=== PATIENT | female | born 1970 | race Caucasian/White ===

== ENCOUNTER → 2018-03-02 | Outpatient (CLI) | payer OTHER | LOC: MRI 14:56 | PROVIDERS: ATTEND Family Medicine | DX: M53.82 Other specified dorsopathies, cervical region (principal) | CPT/HCPCS: 81025 ==

== ENCOUNTER 2018-04-12 09:34 | Observation (INO) | payer OTHER ==
[2018-04-11 15:10] LABS: BASOPHILS % 0.2 % (0.0-1.0); EOSINOPHILS # (AUTO) 0.3 (0.0-0.4); EOSINOPHILS % 4.3 % (0.0-6.0); HEMATOCRIT 44.6 % (34.2-44.1); HEMOGLOBIN 15.1 g/dL (12.0-16.0); LYMPHOCYTES # (AUTO) 1.4 (1.0-3.2); LYMPHOCYTES % 21.2 % (18.0-39.1); MEAN CORPUSCULAR HEMOGLOBIN 30.6 pg (28-32); MEAN CORPUSCULAR HGB CONC 33.9 g/dL (31-35); MEAN CORPUSCULAR VOLUME 90.3 fL (81-99); MONOCYTES # (AUTO) 0.5 (0.2-0.8); NEUTROPHILS # (AUTO) 4.3 (2.1-6.9); NEUTROPHILS % 65.4 % (38.7-80.0); PLATELET COUNT 202 x10e3/uL (140-360); RED BLOOD COUNT 4.94 x10e6/uL (3.6-5.1); RED CELL DISTRIBUTION WIDTH 12.3 % (11.7-14.4)
[2018-04-11 15:17] LABS: INR 0.91; PARTIAL THROMBOPLASTIN TIME 26.9 seconds (23.8-35.5); PROTHROMBIN TIME 13.1 seconds (11.9-14.5)
[2018-04-11 15:23] LABS: ANION GAP 17.6 mmol/L (8-16); BLOOD UREA NITROGEN 12 mg/dL (7-26); BUN/CREATININE RATIO 16 (6-25); CALCIUM 9.3 mg/dL (8.4-10.2); CARBON DIOXIDE 20 mmol/L (22-29); CHLORIDE 100 mmol/L (98-107); CREATININE, SERUM 0.74 mg/dL (0.57-1.11); EST GLOMERULAR FILTRATION RATE > 60 ML/MIN (60-); GLUCOSE 158 mg/dL (74-118); POTASSIUM 3.6 mmol/L (3.5-5.1); SODIUM 134 mmol/L (136-145)
--- NOTE | 2018-04-11 16:06 | Diagnostic Imaging Report ---
EXAMINATION: PA and lateral views of the chest. COMPARISON: None CLINICAL HISTORY: Preoperative evaluation, disc herniation DISCUSSION: Lines/tubes: None. Lungs: The lungs are well inflated and clear. No pneumonia or pulmonary edema. Pleura: No pleural effusion or pneumothorax. Heart and mediastinum: The cardiomediastinal silhouette is normal. Bones and soft tissues: No acute bony abnormalities. IMPRESSION: No acute cardiopulmonary abnormalities. Signed by: Dr. Keith Costa M.D. on 04/11/2018 4:02 PM
[~2018-04-12] VITALS: Ht 165.1 cm; Wt 142.0 kg
[~2018-04-12 09:34] MED LIST: IBUPROFEN200 MG PO; INVOKANA PO; LIDOCAINE HCL (LTA) 4 ML SOLN ONE; METFORMIN HCL500 MG PO; NORCO 5-325 TA1 EACH PO; VICTOZA 2-0.6 MG/0.1 PO
--- OUTSIDE RECORDS SUMMARY | 2018-04-12 09:36 | XMS REPORT ---
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 Allergies, Adverse Reactions, Alerts This patient has no known allergies or adverse reactions. Medications This patient has no known medications. Results Test Description Test Time Test Comments Text Results Atomic Results Result Comments CHEST 2 VIEWS 2018-04-11 16:02:00 [place] [address] Patient Name: ELOINA WAHL MR #: [id number] : 1970 Age/Sex: 47/F Req #: [id number] Adm Physician: Ordered by: CHAKA MEDRANO MD Report #: [id number] Location: OR Room/Bed: Procedure: [id number] DX/CHEST 2 VIEWS Exam Date: 04/11/18 Exam Time: 1500 REPORT STATUS: Signed EXAMINATION: PA and lateral views of the chest. COMPAR TIMA: None CLINICAL HISTORY: Preoperative evaluation, disc herniation DISCUSSION: Lines/tubes: None. Lungs: The lungs are well inflated and clear. No pneumonia or pulmonary edema. Pleura: No pleural effusion or pneumothorax. Heart and mediastinum: The cardiomediastinal silhouette is normal. Bones and soft tissues: No acute bony abnormalities. IMPRESSION: No acute cardiopulmonary abnormalities. Signed by: Dr. Bronson Rogers M.D. on 04/11/2018 4:02 PM Dictated By: BRONSON ROGERS MD 1602 Transcribed By: YONATAN on 04/11/18 1602 COPY TO: CHAKA MEDRANO MD
[2018-04-12] MEDS ORDERED: CEFAZOLIN SOD 2 GM/D5W 50ML 50 ML IV ONE (09:54)
[2018-04-12] MEDS ORDERED: BUPIVACAINE 0.5%/EPI 30 ML SDV INJ ONE (10:11)
[2018-04-12] MEDS ORDERED: GELATIN SPONGE 12-7MM ONE (10:12)
[2018-04-12] MEDS ORDERED: BACITRACIN 50,000 UNIT VIAL ONE (10:12)
[2018-04-12] MEDS ORDERED: THROMBIN FOR SOLN 5,000 UNIT VIAL ONE (10:12)
[2018-04-12] MEDS ORDERED: SCOPOLAMINE 1.5 MG PATCH ONE (11:09)
[2018-04-12] MEDS ORDERED: METOCLOPRAMIDE HCL 10 MG/2ML VIAL ONE (11:09)
[2018-04-12] MEDS ORDERED: FAMOTIDINE 20 MG/2 ML VIAL IV ONE (11:10)
[2018-04-12] MEDS ORDERED: MAGNESIUM/ALUMINUM/SIMETHICONE 30 ML UDC PO PRN (13:00)
[2018-04-12] MEDS ORDERED: CEPACOL SORE THROAT LOZENGES PO PRN (13:00)
[2018-04-12] MEDS ORDERED: OXYCODONE/ACETAMINOPHEN 5-325 1 EACH TABLET PO PRN (13:00)
[2018-04-12] MEDS ORDERED: HYDROCODONE/APAP 5MG-325MG TAB PO SCH (13:00)
[2018-04-12] MEDS ORDERED: NON-FORMULARY MEDICATION (Ibuprofen 200 MG) PO SCH (13:00)
[2018-04-12] MEDS ORDERED: CARISOPRODOL 350 MG TAB PO PRN (13:00)
[2018-04-12] MEDS ORDERED: HYDROMORPHONE 2MG/ML 2 MG/ML ML IV PRN ×2 (13:00→14:15)
[2018-04-12] MEDS ORDERED: ONDANSETRON HCL INJ 2MG/ML 2ML 2 MG/ML VIAL IV PRN (13:00)
[2018-04-12] MEDS ORDERED: ACETAMINOPHEN 325 MG TAB PO PRN (13:00)
[2018-04-12] MEDS ORDERED: PROMETHAZINE HCL (IM) 25 MG/ML VIAL IM PRN (13:00)
[2018-04-12] MEDS ORDERED: IBUPROFEN 200 MG TAB PO PRN (13:15)
[2018-04-12] MEDS ORDERED: FENTANYL CITRATE/PF 100MCG/2 ML INJ ONE ×2 (13:32→15:07)
[2018-04-12 14:13] VITALS: BP 139/63
[2018-04-12] MEDS ORDERED: DEXAMETHASONE SOD PHOS INJ 4 MG/ML VIAL ONE (14:13)
[2018-04-12] MEDS ORDERED: PROPOFOL IV EMULSION 10 MG/ML 20 ML VIAL ONE (14:13)
[2018-04-12] MEDS ORDERED: LIDOCAINE HCL 2% LOCAL INJ 5 ML SDV VIAL INJ ONE (14:13)
[2018-04-12] MEDS ORDERED: GLYCOPYRROLATE INJ 1MG/ 5 ML SYR ONE (14:13)
[2018-04-12] MEDS ORDERED: SEVOFLURANE INHAL SOLN 250 ML PEN BTL ONE (14:13)
[2018-04-12] MEDS ORDERED: NEOSTIGMINE 5 MG/5ML SYR ONE (14:13)
[2018-04-12] MEDS ORDERED: ONDANSETRON HCL INJ 2MG/ML 2ML 2 MG/ML VIAL ONE (14:13)
[2018-04-12] MEDS ORDERED: ROCURONIUM BROMIDE 10 MG/ML 5ML VIAL ONE (14:13)
[2018-04-12] MEDS ORDERED: ACETAMINOPHEN 1000 MG/100 ML IV ONE (14:13)
[2018-04-12] MEDS ORDERED: HYDROCODONE/APAP 5MG-325MG TAB PO PRN (14:15)
[2018-04-12 14:28] VITALS: BP 139/63
[2018-04-12 14:37] VITALS: BP 139/63
[2018-04-12] MEDS: LACTATED RINGER'S 1,000 ML IV SCH ×2 (14:39→21:10)
--- NOTE | 2018-04-12 14:52 | Operative Report ---
DATE OF PROCEDURE: April 12, 2018 PREOPERATIVE DIAGNOSIS: C6-C7 disk herniation with radiculopathy, M50.123. POSTOPERATIVE DIAGNOSIS: C6-C7 disk herniation with radiculopathy, M50.123. PROCEDURES 1. C6-7 anterior cervical diskectomy and allograft fusion and plating, 31770. 2. Preparation of [employer] cortical cancellous allograft, 46540. 3. C6-7 anterior cervical plating with Synthes ZPN plate, 27021. ANESTHESIA: General. INDICATIONS: The patient is a 47-year-old woman who presents with C6-C7 disk herniation and right C7 radiculopathy. She was taken to the operating room for anterior cervical decompression and fusion. PROCEDURE: After the induction of general anesthesia, the patient was placed on the operating table in the supine position. The right side of the neck was prepped and draped in a sterile fashion. A fluoroscopic C-arm was positioned in cross-table lateral orientation. A transverse incision was created on the right side of the neck superimposed on the C6-7 disk space as determined by fluoroscopy. The platysma was divided in line with the incision. A subplatysmal dissection was carried out. An avascular plane of dissection was developed medial to the sternocleidomastoid muscle and was followed medial to the carotid sheath to the anterior border of the cervical spine. The deep cervical fascia was opened. The esophagus was retracted to the left. The attachments of the longus coli muscles to the anterolateral aspects of the vertebral bodies of C6 and C7 were divided. The anterior longitudinal ligament was resected. Columbia posts were inserted into C6 and C7. The Columbia distractor was used distract the disk space. The anterior annulus of the disk was incised a #11 blade, and the contents of the disk were thoroughly evacuated with angled curets and pituitary rongeurs. The posterior osteophytes were meticulously drilled with a 2-mm cutting bur until they were completely removed. The posterior annulus of the disk, herniated disk material and the posterior longitudinal ligament were dissected layer by layer until the dura was fully exposed and decompressed. The medial aspects of the uncinate processes were resected bilaterally. Herniated disk material was retrieved and removed from the right C7 neural foramen. Meticulous hemostasis was secured. The disk space was sized and found to be 8 mm in height. A piece of MNF cortical cancellous allograft measuring 8 mm in thickness was selected and prepared in saline and loaded onto a Synthes ZPN plate. The construct was inserted into the C6-8 disk space under distraction and fluoroscopic guidance. The distraction was released, and the distraction posts were removed. The plate was screwed to the endplates of C6 and C7 with 2 pairs of 14-mm screws. All screws were locked. An excellent construct was obtained. The wound was copiously irrigated with Bacitracin solution. Meticulous hemostasis was secured. The retractor was removed. The platysma was closed with 3-0 Vicryl sutures. The skin was closed with 4-0 Monocryl sutures in a subcuticular fashion. Steri-Strips and dressing were applied. Patient was awakened, extubated and taken to the postanesthesia care unit in stable condition. No intraoperative complications were encountered. Estimated loss was 10 mL. Job#: [id number]
--- NOTE | 2018-04-12 14:52 | NUR ---
patient received from pacu via stretcher. see admit assess. dressing to anterior neck dry and intact. soft cervical collar in place. LR at 120cc/hr. family at BS. vitals stable with no distress.
[2018-04-12] MEDS ORDERED: MIDAZOLAM HCL 2 MG/2 ML VIAL ONE (15:07)
[2018-04-12 16:25] VITALS: BP 163/83
[2018-04-12] MEDS: METFORMIN HCL 500 MG TAB PO SCH (17:10)
[2018-04-12] MEDS ORDERED: DEXTROSE 50% SYRINGE 50 ML IV PRN (17:30)
[2018-04-12] MEDS: INSULIN LISPRO 100 UNIT/1 ML 3ML VIAL SQ SCH (17:47)
[2018-04-12 19:10] VITALS: BP 141/64
--- NOTE | 2018-04-12 19:10 | NUR ---
REPORT RECEIVED FROM OFF GOING NURSE, PT RESTING IN BED ALERT AND ORIENTED, SOFT CERVICAL COLLAR WORN, NO COMPLICATIONS NOTED, BED LOCKED AND LOW, IV INFUSING PER ORDER, CALL LIGHT IN REACH, INSTRUCTED TO CALL WITH NEEDS
[2018-04-12 20:00] VITALS: BP 141/64
[2018-04-12] MEDS: CEFAZOLIN SOD 1 GM/NS 50ML 50 ML IV SCH (20:00)
[2018-04-12] MEDS: OXYCODONE/ACETAMINOPHEN 5-325 1 EACH TABLET PO PRN (20:43)
[2018-04-12] MEDS ORDERED: ZOLPIDEM TARTRATE 5 MG TAB PO PRN (21:00)
[2018-04-13] VITALS: BP 157/69
[2018-04-13 00:16] VITALS: BP 141/64
[2018-04-13 04:00] VITALS: BP 133/62
[2018-04-13] MEDS: CEFAZOLIN SOD 1 GM/NS 50ML 50 ML IV SCH ×2 (04:00→12:55)
[2018-04-13] MEDS: LACTATED RINGER'S 1,000 ML IV SCH (05:30)
[2018-04-13] MEDS ORDERED: CANAGLIFLOZIN 300 MG TABLET PO SCH (07:30)
[2018-04-13] MEDS ORDERED: CANAGLIFLOZIN 100 MG TABLET PO SCH (07:30)
[2018-04-13 07:43] VITALS: BP 148/65
[2018-04-13 08:00] VITALS: BP 148/65
[2018-04-13] MEDS: METFORMIN HCL 500 MG TAB PO SCH (08:23)
[2018-04-13] MEDS: INSULIN LISPRO 100 UNIT/1 ML 3ML VIAL SQ SCH ×2 (08:33→13:07)
[2018-04-13] MEDS ORDERED: NON-FORMULARY MEDICATION ([Invokana] 300 MG) PO SCH (09:00)
[2018-04-13] MEDS ORDERED: LIRAGLUTIDE 1.2 MG SC SCH (09:00)
[2018-04-13] MEDS: OXYCODONE/ACETAMINOPHEN 5-325 1 EACH TABLET PO PRN (09:24)
[2018-04-13 11:55] VITALS: BP 128/62
--- NOTE | 2018-04-13 13:19 | Diagnostic Imaging Report ---
Exam: spine lateral 1 view History: disc herniation Comparison: None. Findings: No fracture or malalignment. Anterior cervical fusion of C6-C7 with low profile interbody cage. No complication. Mild degenerative disease C5-C6. No abnormal soft tissue calcification or soft tissue defect. Impression: No acute osseous abnormality Anterior cervical fusion of C6-C7 with low profile interbody cage. Signed by: Dr. Keith Costa M.D. on 04/13/2018 1:15 PM
--- NOTE | 2018-04-13 13:30 | NUR ---
Pt discharged with all personal belonging. All discharge instructions explained to patient and spouse and verbalized. understanding. Prescription for pain medication given to patient.
== END 2018-04-13 14:24 | disposition home or self-care (01) ==
LOC: OR 09:34 → PACU V 12:52 → IMCU 14:06
PROVIDERS: ADMIT Neurological Surgery; ATTEND Neurological Surgery
DX: M50.123 Cervical disc disorder at C6-C7 level with radiculopathy (principal); E11.9 Type 2 diabetes mellitus without complications; Z68.43 Body mass index [BMI] 50.0-59.9, adult; E66.01 Morbid (severe) obesity due to excess calories; F41.9 Anxiety disorder, unspecified; Z88.5 Allergy status to narcotic agent; Z79.84 Long term (current) use of oral hypoglycemic drugs; Z01.810 Encounter for preprocedural cardiovascular examination; Z01.812 Encounter for preprocedural laboratory examination; Z01.811 Encounter for preprocedural respiratory examination
CPT/HCPCS: 20931; 22551; 22845; 36415 ×3; 71046; 72020; 77003; 80048; 81025; 82948 ×2; 85025; 85610; 85730; 86850; 86900; 88304; 93005; C1713 ×2; C9359; G0378 ×2; J0131; J0690 ×3; J1100; J2001; J2250; J2405; J2704; J2765; J3490; J7121